=== PATIENT | female | born 1955 | race African-American/Black ===

== ENCOUNTER 2017-11-21 00:12 | Emergency (ER) | payer OTHER ==
[2017-11-21] MEDS ORDERED: NA CHLORIDE 0.9% 1,000 ML ONE (00:49)
[2017-11-21 00:59] LABS: Absolute Monocytes 0.8 K/uL (0.1-1.3); Absolute Neutrophil 6.2 K/uL (1.8-8.0); Basophils % 1.2 % (0-1.3); Eosinophils % 1.9 % (0-4.4); Hematocrit 32.1 % (36.0-45.0); Lymphocytes % 40.3 % (15.3-44.8); MCH 29.5 pg (27.0-35.0); MCV 87.7 fL (80-100); MPV 9.8 fL (7.6-11.3); Monocytes % 6.5 % (3.3-12.3); RBC Red Blood Cell Count 3.66 M/uL (3.86-4.86)
[2017-11-21 01:02] LABS: Urine Blood 1+ (NEG); Urine Glucose NEGATIVE (NEG); Urine Protein NEGATIVE (NEG); Urine Specific Gravity <1.005 (1.005-1.030)
[2017-11-21 01:03] LABS: Urine Bacteria >50 /HPF (<20); Urine Culture Reflex Order REFLEXED; Urine RBC <5 /HPF (NONE SEEN)
[2017-11-21 01:07] LABS: ALT/SGPT 18 U/L (12-78); AST/SGOT 13 U/L (15-37); Albumin 3.5 g/dL (3.4-5.0); Alkaline Phosphatase 81 U/L (45-117); Amylase Level 58 U/L (25-115); BUN Blood Urea Nitrogen 15 mg/dL (7-18); Bicarbonate 29 mmol/L (21-32); Bilirubin Direct < 0.1 mg/dL (0-0.2); Bilirubin Total 0.4 mg/dL (0.2-1.0); Glucose Level 96 mg/dL (74-106); Lipase 219 U/L (73-393); Potassium 3.2 mmol/L (3.5-5.1); Protein, Total 7.6 g/dL (6.4-8.2); Sodium Level 144 mmol/L (136-145)
--- NOTE | 2017-11-21 02:49 | ER ---
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 Transition of care: patient was not received from another setting of care. Onset of symptoms was November 21, 2017. Risk Assessment: Do you want to hurt yourself or someone else? Patient reports no desire to harm self or others. Initial Sepsis Screen: Does the patient meet any 2 criteria? No. Patient's initial sepsis screen is negative. Does the patient have a suspected source of infection? No. Patient's initial sepsis screen is negative. Care prior to arrival: None. 00:14 Method Of Arrival: EMS: [facility] tl1 00:14 Acuity: [facility] 3 tl1 Historical: - Allergies: 00:16 No Known Allergies; tl1 - Home Meds: 00:16 None [Active]; tl1 - PMHx: 00:16 None; tl1 - PSHx: 00:16 None; tl1 - Immunization history:: Adult Immunizations unknown. - Social history:: Smoking status: Patient uses tobacco products, smokes one pack cigarettes per day. - Ebola Screening: : Patient negative for fever greater than or equal to 101.5 degrees Fahrenheit, and additional compatible Ebola Virus Disease symptoms Patient denies exposure to infectious person Patient denies travel to an Ebola-affected area in the 21 days before illness onset. Screenin:18 Abuse screen: Denies threats or abuse. Denies injuries from another. Has been tl1 threatened or abused. Nutritional screening: No deficits noted. Tuberculosis screening: No symptoms or risk factors identified. Fall Risk IV access (20 points). Assessment: 00:17 General: Appears in no apparent distress. Behavior is calm, cooperative, appropriate tl1 for age. Pain: Denies pain. Neuro: No deficits noted. Level of Consciousness is awake, alert, obeys commands, Oriented to person, place, time, situation. Cardiovascular: Denies chest pain. Respiratory: Airway is patent Trachea midline Respiratory effort is even, unlabored, Breath sounds are clear bilaterally. GI: Abdomen is non-distended, Bowel sounds present X 4 quads. Abd is soft and non tender X 4 quads. : No signs and/or symptoms were reported regarding the genitourinary system. EENT: No signs and/or symptoms were reported regarding the EENT system. Derm: No signs and/or symptoms reported regarding the dermatologic system. Musculoskeletal: No deficits noted. 02:57 Reassessment: Patient appears in no apparent distress at this time. Patient and/or jd3 family updated on plan of care and expected duration. Pain level reassessed. Patient is alert, oriented x 3, equal unlabored respirations, skin warm/dry/pink. pt reported understanding of discharge instructions, even and steady gait upon discharge. Vital Signs: 00:16 BP 136 / 70; Pulse 84; Resp 17; Pulse Ox 97% ; Weight 63.5 kg; Height 5 ft. 4 in. tl1 (162.56 cm); Pain 0/10; 01:59 BP 166 / 81; Pulse 56; Resp 18; Pulse Ox 100% ; Pain 0/10; tl1 02:49 BP 146 / 80; Pulse 72; Resp 16; Temp 98.4; Pulse Ox 100% ; Pain 0/10; tl1 00:16 Body Mass Index 24.03 (63.50 kg, 162.56 cm) tl1 ED Course: 00:13 Patient arrived in ED. tl1 00:14 Meghan Tran, KAIN is Primary Nurse. tl1 00:15 Triage completed. tl1 00:17 Arm band placed on right wrist. tl1 00:29 Raymond Lyles MD is Attending Physician. pkl 00:44 No provider procedures requiring assistance completed. Inserted saline lock: 20 gauge tl1 in left antecubital area, using aseptic technique. Blood collected. 01:[address] via wheelchair. kw1 01:29 CT Stone Protocol In Process Unspecified. EDMS 01:30 CT completed. Patient tolerated procedure well. Patient moved back from CT. kw1 02:45 Urine Dipstick--Ancillary (enter results) Sent. tl1 02:47 Stiven Richard MD is Referral Physician. pkl 02:59 Patient has correct armband on for positive identification. Bed in low position. Call jd3 light in reach. Side rails up X 1. Adult w/ patient. 02:59 IV discontinued, intact, bleeding controlled, No redness/swelling at site. Pressure jd3 dressing applied. Administered Medications: 00:43 Drug: NS 0.9% 1000 ml Route: IV; Rate: 100 ml/hr; Site: left antecubital; tl1 03:00 Follow up: Response: No adverse reaction; IV Status: Order to discontinue infusion; IV jd3 Intake: 200ml 02:48 Drug: K-Dur 40 mEq Route: PO; tl1 03:00 Follow up: Response: No adverse reaction; Medication administered at discharge. jd3 Intake: 03:00 IV: 200ml; Total: 200ml. jd3 Outcome: 02:49 Discharge ordered by . pkl 02:59 Discharged to home ambulatory, with family. jd3 02:59 Condition: stable 02:59 Discharge instructions given to patient, family, Instructed on discharge instructions, follow up and referral plans. medication usage, Demonstrated understanding of instructions, follow-up care, medications, Prescriptions given X 2. 03:01 Patient left the ED. jd3 Addendum: 11/24/2017 13:31 Addendum: Culture Results: Positive urine culture. Patient was not prescribed i w antibiotics at discharge. Report given to BRODERICK for further evaluation and then to boiler operator for follow up with patient. Phone call Attempt #1 attempted to call pt, call failed. Signatures: Dispatcher [employer] EDMS Raymond Lyles MD MD pkl Williams, Irene, RN RN iw Lasagna, Tonya, RN RN tl1 Zhou Thompson RN RN jd3 Wilhelm, Kimberly [facility]
--- NOTE | 2017-11-21 02:49 | EDPHYS ---
Physician Documentation [facility] Name: Narcisa Falcon Age: 62 yrs Sex: Female : 1955 Arrival Date: 11/21/2017 Time: 00:13 Bed 8 Private MD: ED Physician Raymond Lyles HPI: 11/21 00:51 This 62 yrs old Black Female presents to ER via EMS with complaints of Flank Pain. pkl 00:51 The patient complains of pain in the right flank. The pain radiates to the right lower pkl quadrant. Onset: The symptoms/episode began/occurred just prior to arrival. Historical: - Allergies: 00:16 No Known Allergies; tl1 - Home Meds: 00:16 None [Active]; tl1 - PMHx: 00:16 None; tl1 - PSHx: 00:16 None; tl1 - Immunization history:: Adult Immunizations unknown. - Social history:: Smoking status: Patient uses tobacco products, smokes one pack cigarettes per day. - Ebola Screening: : Patient negative for fever greater than or equal to 101.5 degrees Fahrenheit, and additional compatible Ebola Virus Disease symptoms Patient denies exposure to infectious person Patient denies travel to an Ebola-affected area in the 21 days before illness onset. ROS: 00:51 Eyes: Negative for injury, pain, redness, and discharge, ENT: Negative for injury, pkl pain, and discharge, Neck: Negative for injury, pain, and swelling, Cardiovascular: Negative for chest pain, palpitations, and edema, Respiratory: Negative for shortness of breath, cough, wheezing, and pleuritic chest pain, Abdomen/GI: Negative for abdominal pain, nausea, vomiting, diarrhea, and constipation. 00:51 Back: Positive for flank pain, on the right. 00:51 : Negative for urinary symptoms. 00:51 MS/extremity: Negative for acute changes. 00:51 Skin: Negative for rash. 00:51 Neuro: Negative for altered mental status. Exam: 00:51 Head/Face: Normocephalic, atraumatic. Eyes: Pupils equal round and reactive to light, pkl extra-ocular motions intact. Lids and lashes normal. Conjunctiva and sclera are non-icteric and not injected. Cornea within normal limits. Periorbital areas with no swelling, redness, or edema. ENT: Nares patent. No nasal discharge, no septal abnormalities noted. Tympanic membranes are normal and external auditory canals are clear. Oropharynx with no redness, swelling, or masses, exudates, or evidence of obstruction, uvula midline. Mucous membranes moist. Neck: Trachea midline, no thyromegaly or masses palpated, and no cervical lymphadenopathy. Supple, full range of motion without nuchal rigidity, or vertebral point tenderness. No Meningismus. Chest/axilla: Normal chest wall appearance and motion. Nontender with no deformity. No lesions are appreciated. Cardiovascular: Regular rate and rhythm with a normal S1 and S2. No gallops, murmurs, or rubs. Normal PMI, no JVD. No pulse deficits. Respiratory: Lungs have equal breath sounds bilaterally, clear to auscultation and percussion. No rales, rhonchi or wheezes noted. No increased work of breathing, no retractions or nasal flaring. Abdomen/GI: Soft, non-tender, with normal bowel sounds. No distension or tympany. No guarding or rebound. No evidence of tenderness throughout. 00:51 Back: pain, that is moderate, of the right flank. 00:51 : Exam negative for acute changes. 00:51 Musculoskeletal/extremity: Exam is negative for acute changes. 00:51 Skin: Exam negative for rash. 00:51 Neuro: Orientation: is normal, Mentation: is normal, Cranial nerves: grossly normal, Motor: is normal. Vital Signs: 00:16 BP 136 / 70; Pulse 84; Resp 17; Pulse Ox 97% ; Weight 63.5 kg; Height 5 ft. 4 in. tl1 (162.56 cm); Pain 0/10; 01:59 BP 166 / 81; Pulse 56; Resp 18; Pulse Ox 100% ; Pain 0/10; tl1 02:49 BP 146 / 80; Pulse 72; Resp 16; Temp 98.4; Pulse Ox 100% ; Pain 0/10; tl1 00:16 Body Mass Index 24.03 (63.50 kg, 162.56 cm) tl1 MDM: 00:29 Patient medically screened. pkl 02:47 Data reviewed: vital signs, nurses notes, lab test result(s), radiologic studies, CT pkl scan. 11/21 00:28 Order name: Amylase, Serum; Complete Time: 01:11 tl1 08/06 00:28 Order name: Basic Metabolic Panel; Complete Time: 01:11 tl1 08 00:28 Order name: CBC with Diff; Complete Time: 01:11 tl1 11/21 00:28 Order name: Creatinine for Radiology; Complete Time: 01:11 tl1 08 00:28 Order name: Hepatic Function; Complete Time: 01:11 tl1 11/21 00:28 Order name: Lipase; Complete Time: 01:11 tl1 11/21 00:28 Order name: Urine Microscopic Only; Complete Time: : tl1 11/21 00:28 Order name: IV Saline Lock; Complete Time: 00:28 tl1 08 00:42 Order name: Urine Dipstick--Ancillary (enter results) rg2 08 00:42 Order name: Urine Dipstick-Ancillary; Complete Time: 01:11 EDMS 08 00:43 Order name: CT Stone Protocol pkl 11/21 01:06 Order name: Urine Culture EDMS 11/21 00:28 Order name: Labs collected and sent; Complete Time: 00:28 tl1 11/21 00:28 Order name: Urine Dipstick-Ancillary (obtain specimen); Complete Time: 00:41 tl1 Administered Medications: 00:43 Drug: NS 0.9% 1000 ml Route: IV; Rate: 100 ml/hr; Site: left antecubital; tl1 03:00 Follow up: Response: No adverse reaction; IV Status: Order to discontinue infusion; IV jd3 Intake: 200ml 02:48 Drug: K-Dur 40 mEq Route: PO; tl1 03:00 Follow up: Response: No adverse reaction; Medication administered at discharge. jd3 Disposition: 11/21/17 02:49 Discharged to Home. Impression: Right ureteral cakculus with moderate hydronephrosis and hydroureter. - Condition is Stable. - Prescriptions for Ultram 50 mg Oral Tablet - take 1 tablet by ORAL route every 8 hours As needed; 20 tablet. Flomax 0.4 mg Oral Capsule, Sust. Release 24 hr - take 1 capsule by ORAL route once daily 1/2 hour following the same meal each day; 15 capsule. - Medication Reconciliation Form, Thank You Letter, Antibiotic Education, Prescription Opioid Use form. - Follow up: Stiven Richard MD; When: 2 - 3 days; Reason: Re-evaluation by your physician. - Problem is new. - Symptoms have improved. Signatures: Dispatcher [employer] EDMS Raymond Lyles MD MD pkl Meghan Tran RN RN tl1 Zhou Thompson RN RN jd3 Corrections: (The following items were deleted from the chart) 03:01 02:49 11/21/2017 02:49 Discharged to Home. Impression: Right ureteral cakculus with jd3 moderate hydronephrosis and hydroureter. Condition is Stable. Forms are Medication Reconciliation Form, Thank You Letter, Antibiotic Education, Prescription Opioid Use. Follow up: Stiven Richard; When: 2 - 3 days; Reason: Re-evaluation by your physician. Problem is new. Symptoms have improved. pkl
[2017-11-21] MEDS ORDERED: POTASSIUM CL SA 10 MEQ TAB PO ONE (02:51)
--- NOTE | 2017-11-21 08:27 | RAD REPORT ---
EXAM DESCRIPTION: CT - Stone Protocol - 11/21/2017 3:50 am CLINICAL HISTORY: Flank pain. right flank pain COMPARISON: CT-STONE PROTOCOL dated 09/24/2008 TECHNIQUE: Axial images were obtained without oral or IV contrast. Lack of contrast limits solid org an and vascular assessment. The [id number] spans the entirety of the system partially obscuring uppermost abdomen and lung bases. Coronal reformatted images were obtained and reviewed. All CT scans are performed using dose optimization technique as appropriate and may include automated exposure control or mA/KV adjustment according to patient size. FINDINGS: The lower lung delgado are clear. Imaged portions of the liver and spleen show no suspicious findings on non-contrast imaging. The panc reas and adrenal glands are normal. No pathologic lymphadenopathy in the abdomen or pelvis. Mild right hydronephrosis is noted caused by faint punctate 1 mm stone in the distal right ureter. No additional stone or hydronephrosis seen. No bowel obstruction, free air, free fluid or abscess. Normal appendix noted. No significant bony abnormality. Aortic atherosclerosis. IMPRESSION: Mild right-sided hydronephrosis caused by faint punctate 1 mm calculus in the distal rig ht ureter.
== END 2017-11-21 03:01 | disposition home or self-care (01) ==
LOC: ER 00:12
DX: N13.2 Hydronephrosis with renal and ureteral calculous obstruction (principal); F17.210 Nicotine dependence, cigarettes, uncomplicated
CPT/HCPCS: 36415; 74176; 76377; 80048; 80076; 82150; 83690; 85025; 87086; 87088; J7030; 81003; 81015; 87077; 87186; 96360; 96361; 99284